=== PATIENT | male | born 1950 | race Caucasian/White ===

== ENCOUNTER 2023-09-29 05:37 | Observation (INO) ==
[~2023-09-29 05:37] MED LIST: Naloxone 0.4 mg VIAL 0.4 mg/ml 1 ml VIAL IV PRN; fentaNYL 100 mcg/2 ml 50 MCG/ML VIAL IV PRN
[2023-09-29] MEDS ORDERED: Buffered Lidocaine 1% SYRIN 1 ml INTRADERM ONE (06:00)
[2023-09-29] MEDS ORDERED: Lactated Ringers 1000 ml BAG 1,000 ML IV SCH (06:00)
[2023-09-29 06:23] LABS: Rapid COVID-19 Molecular Undetected (Undetected)
[2023-09-29] MEDS ORDERED: Tranexamic Acid 1 GM/100ML BAG 2,000 MG/200 ML BAG IV ONE (06:34)
[2023-09-29] MEDS ORDERED: ceFAZolin 2 GM PREMIX 2 GM/50 ML BAG ONE (06:34)
[2023-09-29] MEDS ORDERED: Midazolam 2 mg/2 ml VIAL 1 mg/ml 2 ml VIAL (2 mg) ONE (06:54)
[2023-09-29] MEDS ORDERED: Rocuronium 50 mg VIAL 10 mg/ml 5 ml VIAL (50 mg) ONE (06:54)
[2023-09-29] MEDS ORDERED: fentaNYL 100 mcg/2 ml 50 MCG/ML VIAL ONE ×2 (06:54→11:08)
[2023-09-29 07:08] LABS: ABS Basophils 0.1 10^3/uL (0.0-0.1); ABS Eosinophils 0.4 10^3/uL (0.0-0.5); ABS Lymphocytes 3.7 10^3/uL (1.0-4.8); ABS Monocytes 0.7 10^3/uL (0.0-1.1); ABS Neutrophils 6.5 10^3/uL (1.5-7.6); ABS Nucleated RBC 0.02 10^3/ul; Eosinophil % 3.9 %; Hematocrit 44.4 % (38-53); Hemoglobin 15.3 g/dL (13.2-16.3); Lymphocyte % 32.5 %; Mean Corpuscular Hemoglobin 29.7 pg (27-33); Mean Corpuscular Hgb Conc 34.5 g/dL (31-36); Mean Corpuscular Volume 86.1 fL (80-97); Mean Platelet Volume 8.4 fL (7.5-11.2); Nucleated Red Blood Cells % 0.1 %/100WBC (0.0-0.8); Platelet Count 287 10^3/uL (150-450); Red Blood Count 5.16 10^6/uL (4.06-5.63); Red Cell Distribution Width 13.2 % (12-17); White Blood Count 11.4 10^3/uL (3.6-10.2)
[2023-09-29] MEDS ORDERED: Bupivacaine 0.25% SDV 30 ML ONE (07:18)
[2023-09-29] MEDS ORDERED: BUPIVACAINE **LIPOSOME/PF 13.3 MG/ML (266MG/ 20ML) VIAL (RESTRICTED) INFIL ONE (08:00)
[2023-09-29] MEDS ORDERED: HYDROmorphone 0.5 MG/0.5 ML SYRINGE ONE ×2 (08:04→08:24)
[2023-09-29] MEDS ORDERED: Lactulose 30 ml UDC PO PRN (10:25)
[2023-09-29] MEDS ORDERED: Magnesium Hydroxide LIQ 30 ML UDC PO PRN (10:25)
[2023-09-29] MEDS ORDERED: Ondansetron 4 mg VIAL 2 MG/ML 2 ml VIAL IV PRN (10:25)
[2023-09-29] MEDS ORDERED: Morphine 2 MG/ML SYRINGE IV PRN (10:25)
[2023-09-29] MEDS ORDERED: Ondansetron ODT 4 mg TAB 4 MG TAB PO PRN (10:25)
[2023-09-29] MEDS ORDERED: Ondansetron 4 mg VIAL 2 MG/ML 2 ml VIAL ONE (11:03)
[2023-09-29] MEDS: Lactated Ringers 1000 ml BAG 1,000 ML IV SCH ×2 (13:17→22:21)
[2023-09-29] MEDS ORDERED: Albuterol HFA INHALER 8 gm MDI INH PRN (16:54)
[2023-09-29] MEDS: ceFAZolin 1 GM ADVAN 1 GM in NS 0.9% 50 ML 50 ML IVPB SCH ×2 (16:57→22:21)
[2023-09-29] MEDS: Magnesium Hydroxide LIQ 30 ML UDC PO SCH (21:16)
[2023-09-30 06:23] LABS: Platelet Count 219 10^3/uL (150-450)
[2023-09-30 06:36] LABS: Hematocrit 36.7 % (38-53); Hemoglobin 12.6 g/dL (13.2-16.3); Mean Platelet Volume 8.3 fL (7.5-11.2)
[2023-09-30 06:41] LABS: Calcium 8.2 mg/dL (8.6-10.3); Creatinine, Serum 0.85 mg/dL (0.67-1.17); Potassium 3.1 mmol/L (3.5-5.0); eGFR CKD-EPI 92.3 (>60)
[2023-09-30] MEDS: ceFAZolin 1 GM ADVAN 1 GM in NS 0.9% 50 ML 50 ML IVPB SCH (08:00)
[2023-09-30] MEDS: Cholecalciferol (VIT D3) 1,000 unit TAB PO SCH (08:03)
[2023-09-30] MEDS: Magnesium Hydroxide LIQ 30 ML UDC PO SCH ×2 (08:03→21:02)
[2023-09-30] MEDS: Multivitamins/Minerals TAB PO SCH (08:06)
[2023-09-30] MEDS ORDERED: Vitamin THERAPEUTIC TAB PO SCH (09:00)
[2023-09-30] MEDS ORDERED: Potassium Chloride LIQUID 20 MEQ/15 ML LIQUID PO ONE (09:31)
[2023-10-01 06:41] LABS: Platelet Count 208 10^3/uL (150-450)
[2023-10-01 06:52] LABS: Hematocrit 35.6 % (38-53); Mean Platelet Volume 8.8 fL (7.5-11.2)
[2023-10-01 06:57] LABS: Calcium 8.2 mg/dL (8.6-10.3); Creatinine, Serum 0.74 mg/dL (0.67-1.17); Potassium 3.3 mmol/L (3.5-5.0); eGFR CKD-EPI 96.3 (>60)
[2023-10-01] MEDS: Magnesium Hydroxide LIQ 30 ML UDC PO SCH (09:08)
[2023-10-01] MEDS: Multivitamins/Minerals TAB PO SCH (09:23)
[2023-10-01] MEDS: Cholecalciferol (VIT D3) 1,000 unit TAB PO SCH (09:23)
[2023-10-01 10:43] VITALS: BP 105/50
== END 2023-10-01 13:11 | disposition home or self-care (01) ==
LOC: SSU 05:37 → OR 05:37
PROVIDERS: ADMIT Orthopaedic Surgery Sports Medicine; ATTEND Orthopaedic Surgery Sports Medicine